=== PATIENT | female | born 1955 | race Caucasian/White ===

== ENCOUNTER 2016-04-21 07:23 | Day surgery (SDC) | payer OTHER ==
[2016-04-21] VITALS (13 sets, daily range): BP systolic 110–142; BP diastolic 51–73; PULSE 59–79; RESP 11–20; O2SAT 95–99
[~2016-04-21] VITALS: Ht 165.1 cm; Wt 93.9 kg
[~2016-04-21 07:23] MED LIST: ASCO1TAB39 PO; BUPR300T52 PO; CeFAZolin Inj 2 GM in IV Premix 1 EACH IV ONE; DICL100G26 TOPICAL; GABA-502 PO; HYDR-656 PO; HYDR25TA4 PO; IBUP200C11 PO; ROPI1TAB3 PO; TRAZ-118 PO; VITA150T PO
[2016-04-21] MEDS ORDERED: Dexamethasone 4 mg/mL Inj ONE (07:24)
[2016-04-21] MEDS ORDERED: Neostigmine 1 mg/mL 5 mL Inj ONE (07:24)
[2016-04-21] MEDS ORDERED: Rocuronium 10 mg/mL 5 mL Inj ONE (07:24)
[2016-04-21] MEDS ORDERED: Bupivacaine-MPF 0.25%/EPI 30 mL Inj ONE (07:24)
[2016-04-21] MEDS ORDERED: Propofol 10,000 mCg/mL 20 mL Inj ONE (07:24)
[2016-04-21] MEDS ORDERED: Succinylcholine Chloride 20 mg/mL 5 mL Inj ONE (07:24)
[2016-04-21] MEDS ORDERED: fentaNYL-PF 50 mCg/mL 2 mL Inj ONE (07:24)
[2016-04-21] MEDS ORDERED: Phenylephrine 10,000 mCg/mL Inj ONE (07:24)
[2016-04-21] MEDS ORDERED: Glycopyrrolate 0.2 mg/mL 5 mL Inj ONE (07:24)
[2016-04-21] MEDS ORDERED: Ondansetron 2 mg/mL 2 mL Inj ONE (07:24)
[2016-04-21] MEDS: Lactated Ringer's 1,000 ML IV SCH ×2 (07:40→09:00)
--- NOTE | 2016-04-21 08:28 | PCM.HPANE ---
Patient Data Surgeon Admitting Provider: Attending Provider:Dion Gunderson DO Primary Care Physician:Rianna Fox MD Other Provider:Luz Kirkpatrick Anesthesia Reason for Visit Right Shoulder Rotator Cuff Tear, Carpal Tunnel Ht/WT & BMI Height (Feet): 5 Height (Inches): 5.00 Weight (Kilograms): 93.9 Body Mass Index 34.00 Allergies Coded Allergies: No Known Allergies (Unverified , 04/18/16) Past Anesthesia History Anesthesia History: Denies:: Abnormal Airway, Anesthesia Reactions, Difficult Intubation, Fam Anesthesia Reaction, Fam Malignant Hypertherm, Malignant Hyperthermia Diabetes History Hx Diabetes?: No MRSA MRSA: No Medications Hypertension Medication: Yes Home Meds Incl Beta Bao: No Reported Medications Trazodone 100 Mg [id number] Mg PO BID Ref 0 04/18/16 Vitamin B Complex & Vit C No.4 (Super B Complex)150 Mg [id number] Mg PO DAILY 04/18/16 Ropinirole 1 Mg Tablet1 Mg PO BID Ref 0 04/18/16 hydrOXYzine Hcl (HydrOXYzine Hcl)25 Mg [id number] Mg PO TID PRN For Itching Ref 0 04/18/16 Hydrochlorothiazide 25 Mg [id number] Mg PO DAILY 30 Days Ref 0 04/18/16 Ascorbic Acid/Vitamin E/Biotin (Hair Skin Nails-Biotin Gummies)1 Each Tab.[email or web address] Each PO DAILY 04/18/16 Gabapentin 300 Mg [id number] Mg PO TID Ref 0 04/18/16 Diclofenac Gel 100 Gm Tube1 Applic TOPICAL QID PRN For Pain #1 TUBE 04/18/16 Bupropion ER 300 Mg Tab.[id number] Mg PO DAILY Ref 0 04/18/16 Ibuprofen (Advil)200 Mg [id number] Mg PO Q6H PRN For Pain 04/18/16 History HEENT History: Denies:: Abnormal Airway Cataracts Difficult Intubation Dysphagia Glaucoma Hearing Problem Sinus Problem TMJ Denture Type: Partial- Upper Hx of Heart Problems?: Yes Cardiovascular History: Positive for:: Hypertension Denies:: AICD Abdominal Aortic Aneurism Atrial Fibrillation Cardiac Surgery Chest Pain Edema Heart Murmur Irregular Heartbeat Pacemaker Peripheral Vascular Rheumatic Fever Hx of Respiratory Problem?: Yes Respiratory History: Positive for:: Pneumonia (2014- last occasion) Use of C-PAP Machine (prior use of, stopped on own- couldnt tolerate) Denies:: Asthma COPD Emphysema Oxygen Administration Tuberculosis Use of Inhalers / NEBS Neurological History: Denies:: Alzheimer's Disease CVA Dementia Dizziness Headaches Multiple Sclerosis Parkinson's Disease Seizures TIA Other Neurological Pertinent: restless leg syndrome Hx of GI Problems?: Yes Gastrointestinal History: Positive for:: Gall Bladder Disease (removed) Heartburn (occasional) Denies:: Cirrhosis Diverticulitis Gastroesphageal Reflux Gastrointestinal Bleeding Hepatitis Hiatal Hernia Liver Disease Rectal Bleeding Hx of Problems?: No Genitourinary History: Denies:: Kidney Stones Urinary Tract Infection Female Hx: Denies:: Currently (tubal ligation) Problems with Breasts? Skin History: Denies:: History Skin Disorders? Pressure Ulcers Hx Musculoskeletal Problems?: Yes Musculoskeletal History: Positive for:: Back Injury (related to shoulder) Musculoskeletal Trauma (right shoulder, right carpal tunnel current admission problem) Osteoarthritis Denies:: Fibromyalgia Joint Replacement Myasthenia Gravis Systemic Lupus Hx of Psycho/Social Problems?: Yes Psycho Social History: Positive for:: Hx Depression Hx Surgeries?: Yes (tubal, prior shoulder, carpal tunnel, donald) Hx Any Other Health Problems?: Yes Other History: Denies:: Cancer Thyroid Disease History Blood Transfusions: Positive for:: Accept Blood Products? Denies:: Blood Transfusions Hx Diabetes: No Hx Alcohol Use: No (stopped drinking a year ago)Hx Substance Use: NoHave You Smoked inLast 12 mo: No Stop/Bang Treated for Sleep Apnea?: No Do You Have a CPAP Machine?: No S-Snoring: Do You Snore Loudly: Yes T-Tired: feel tired, fatigued: Yes O-Obsered: Observed not breath: No P-Blood Pressure: treated: No B- Body Mass Index > 35 kg/m2: Yes A- Age over 50: Yes N- Neck Large Circumference: No G- Gender Male: No TIM Total Score: 4 TIM Risk Assessment: High Risk, =/>3 Yes Risk Assessment Category Category 1A: Patient has history of documented sleep apnea, and HAS NOT received any narcotic, sedative or anesthesia administration during this stay. Category 1B: Patient has history of documented sleep apnea, and HAS received any narcotic , sedative or anesthesia administration during this stay Category 2: Patient has SUSPECTED Obstructive Sleep Apnea, and HAS received any narcotic , sedative or anesthesia administration during this stay. Category 3: Patient has SUSPECTED Obstructive Sleep Apnea and HAS NOT received narcotic, sedative or anesthesia administration during this stay. Category 4: Outpatient in Procedural Areas with known sleep apnea or who screen positive for High Risk via the STOP/BANG questionnaire. Exam Exam Vital Signs Vital Signs Date Time Temp Pulse Resp B/P Pulse Ox O2 Delivery O2 Flow Rate FiO2 04/21/16 07:56 CPAP/BIPAP 04/21/16 07:56 35.4 59 14 110/65 98 Room Air General Appearance: Oriented X3 HEENT/AIRWAY: MP 2 Lungs: Normal Air Movement Heart: Regular Rate/Rhythm Meds/Labs/Diagnostics Admission Meds Current Medications Lactated Ringer's (Lr) 1,000 ml @ 120 mls/hr Q8H20M IV Last administered on t 07:40; Start 04/21/16 at 05:00; Stop 04/21/16 at 13:19 Plan Impression Patient chart reviewed, patient interviewed and anesthestic plan with risks, benefits, and alternatives discussed, and informed consent obtained. NPO Status: 04/20 ASA Physical Status: ASA2 Mod Systemic Disease Anesthetic Plan: GA, Regional Block Bene/Risks/Altern/Consents: Yes HP Complete Prior to Induction: Yes Benedicto Aldana MD Apr 21, 2016 08:28
[2016-04-21] MEDS ORDERED: oxyCODONE-Acetamin 5-325 mg Tablet PO PRN (09:25)
[2016-04-21] MEDS ORDERED: HYDROmorphone 1 mg/mL Inj IVPUSH PRN (10:20)
[2016-04-21] MEDS ORDERED: MetoCLOpramide 5 mg/mL 2 mL Inj IVPUSH PRN (10:20)
[2016-04-21] MEDS ORDERED: Atropine 0.4 mg/mL Inj IVPUSH PRN (10:20)
[2016-04-21] MEDS ORDERED: fentaNYL-PF 50 mCg/mL 2 mL Inj IVPUSH PRN (10:20)
[2016-04-21] MEDS ORDERED: Lactated Ringer's 1,000 ML IV SCH (10:20)
[2016-04-21] MEDS ORDERED: hydrALAZINE 20 mg/mL Inj IVPUSH PRN (10:20)
[2016-04-21] MEDS ORDERED: EPHEDrine Sulfate 50 mg/mL Inj IVPUSH PRN (10:20)
[2016-04-21] MEDS ORDERED: Ondansetron 2 mg/mL 2 mL Inj IVPUSH PRN (10:20)
[2016-04-21] MEDS ORDERED: Labetalol 5 mg/mL 4 mL Inj IV PRN (10:20)
[2016-04-21] MEDS ORDERED: Lactated Ringer's 500 ML IV PRN (10:20)
[2016-04-21] MEDS ORDERED: Phenylephrine 10,000 mCg/mL Inj IVPUSH PRN (10:20)
[2016-04-21] MEDS ORDERED: Lidocaine 1%-Epi 1:100,000 20 mL Inj INFILTRATE ONE (10:28)
--- NOTE | 2016-04-21 12:27 | PCM.ANEP1 ---
Post Anesthesia Phase 1 PACU Phase 1 Assessment Vital Signs Vital Signs Date Time Temp Pulse Resp B/P Pulse Ox O2 Delivery O2 Flow Rate FiO2 04/21/16 12:25 78 19 130/69 95 Room Air 04/21/16 12:20 73 15 131/60 97 Room Air 04/21/16 12:15 75 14 128/62 99 Simple Mask 8 04/21/16 12:12 36.0 79 20 133/51 99 Simple Mask 8 04/21/16 07:56 CPAP/BIPAP 04/21/16 07:56 35.4 59 14 110/65 98 Room Air Anesthetic Administered: GA, Regional Block Level of Alertness: Awake, talking LIN's with Equal Strength: Yes Pain: No Nausea or Vomiting: No Oxygen Delivery: Simple Mask Lungs: Normal Air Movement Jamie Vieyra MD Apr 21, 2016 12:27
--- NOTE | 2016-04-21 12:28 | PCM.ANEP2 ---
Post Anesthesia Evaluation ASA/CMS Post Anesthesia VS in Patient's Normal Range?: Yes Resp Stable; Airway Patent?: Yes CV Function & Hydration Stable: Yes Mental Status Recovered?: Yes Pain control Satisfactory?: Yes N/V Control Satisfactory?: Yes Jamie Vieyra MD Apr 21, 2016 12:28
[2016-04-21] MEDS ORDERED: HYDROmorphone 0.5 mg/0.5 mL iSecure Syringe ONE (12:43)
--- NOTE | 2016-04-21 13:03 | OP ---
[address] [address] OPERATIVE REPORT PATIENT: CYDNEY LUTHER : 1955 MR#: [id number] ADMIT: 04/21/2016 JOB ID: [id number] DATE OF SURGERY: 04/21/2016 PREOPERATIVE DIAGNOSIS(ES): 1. Right recurrent carpal tunnel syndrome. 2. Right shoulder high-grade partial thickness rotator cuff tear. 3. Right shoulder impingement syndrome. 4. Right shoulder bicipital tendinopathy. 5. Right shoulder acromioclavicular arthritis. POSTOPERATIVE DIAGNOSIS(ES): 1. Right recurrent carpal tunnel syndrome. 2. Right shoulder rotator cuff tear. 3. Right shoulder impingement syndrome. 4. Right shoulder acromioclavicular arthritis. 5. Right shoulder bicipital tendinopathy. 6. Right shoulder degenerative labrum. PROCEDURES: 1. Right open carpal tunnel release. 2. Local soft tissue rearrangement of fat from the hypothenar eminence measuring approximately 1 cm in diameter. 3. Right shoulder arthroscopy with rotator cuff repair. 4. Right shoulder arthroscopy with extensive debridement including debridement of the labrum and a biceps tenotomy. 5. Right shoulder arthroscopy with subacromial decompression and acromioplasty. 6. Right shoulder arthroscopy with distal clavicle excision. SURGEON: Dion Gunderson D.O. ASSISTANTS: Alfredo Almeida PA-C. The assistance of Alfredo Almeida PA-C was necessary for help with manipulation of the intra-articular equipment, including the camera, and for help with primary closure at the conclusion of the case. ANESTHESIA: General. BRIEF HISTORY: The patient is a pleasant 60-year-old female with a longstanding history of right shoulder pain as well as numbness and tingling to the right hand. She had a previous rotator cuff repair many years ago as well as a previous carpal tunnel release performed endoscopically just over a year prior. She started having increased right shoulder pain as well as recurrence of her paresthesias to her right hand. She failed conservative treatment. She was seen previously by Dr. Escalante and started on therapy, as well as OMT treatments at the hospital and multiple injections. An MRI did demonstrate high-grade partial thickness tear and evidence of impingement syndrome, as well as degenerative labral tearing and acromioclavicular arthritis. With failure conservative treatment, I gave the patient the option to proceed with a right shoulder arthroscopy with rotator cuff repair versus debridement, subacromial decompression, distal clavicle excision, and possible biceps tenotomy. I also discussed with her after recurrence of her carpal tunnel symptoms, and having failure to resolve those symptoms with nighttime bracing option, to proceed with a revision carpal tunnel release, this time performed open, and also with a hypothenar fat graft interposition taken from the hypothenar eminence. She understood the risks include, but are not limited to, neurovascular injury, tendon injury, infection, failure to resolve the patient's preoperative symptoms, stiffness, and persistent pain, all of which may require further intervention. The patient had all questions answered. Consent was signed and placed in the chart. PROCEDURE IN DETAIL: The patient was brought to the operative suite and placed on the operating room table. A surgical time-out was then performed. Everyone in the room was in agreement. After appropriate anesthesia was obtained, the patient was placed into the beach chair position with all prominences well padded. The right upper extremity was then prepped and draped in sterile fashion. Carpal tunnel surgery was approached first. A sterile tourniquet was applied. The right upper extremity was then exsanguinated. Tourniquet was then inflated to 250 mmHg. A 2 cm longitudinal incision was made in line with the radial aspect of the ring finger and the ulnar aspect of the palmaris longus. The incision was kept distal to the wrist crease and proximal to Gonzalez's cardinal line. Subcutaneous tissues were dissected, with bipolar electrocautery utilized to maintain hemostasis throughout the procedure. The palmar fascia was then incised in line with the skin incision, followed by exposure of the underlying transverse carpal ligament. The transverse carpal ligament was then released in its entirety to include the distal extent of the antebrachial fascia. Copious irrigation was then performed. A centimeter in diameter segment of hypothenar fat was freed up from the surrounding soft tissues and rotated and sewn into the radial flap of the released transverse carpal ligament as an interposition. This was secured with 4-0 Vicryl. A 4-0 nylon was then used to close the skin. A bulky dressing was then applied and attention was turned towards the shoulder arthroscopy. A standard posterior viewing portal was then developed in typical fashion. On gross observation there was significant hypertrophic bursa, as well as degenerative labral tearing from the 9 o'clock to the 2 o'clock position. There was also evidence of bicipital tendinopathy within the distal aspect of the tendon within the intra-articular space. The undersurface demonstrated previous sutures from a previous rotator cuff repair and a perforation of the anterior fibers of the supraspinatus. An anterior working portal was then developed in typical fashion, first utilizing a spinal needle to determine the appropriate position for the working portal. A shaver was introduced to perform extensive synovectomy as well as debridement of the labrum. The degenerative labrum was well debrided but the superior aspect was easily elevated off of the superior glenoid. With the combination of the labral tear as well as the bicipital tendinopathy, the decision was made to perform a biceps tenotomy. Biceps tenotomy was then performed utilizing arthroscopic scissors as well as a shaver to debride back the stump to a stable labrum. Attention was then turned to the subacromial space. The camera was introduced. There was significant hypertrophic bursa. A lateral working portal was then created and a shaver introduced to perform an extensive bursectomy. This allowed for visualization of the bursal surface of the rotator cuff. The very anterior fibers demonstrated some thinning, with a small area of perforation. A single 4.5 mm Arthrex corkscrew anchor was then applied just lateral to the articular surface of the humeral head and the sutures shuttled through to repair the rotator cuff in a single row fashion. Attention was then turned towards the undersurface of the acromion. Surface electrocautery was used to further delineate the undersurface of the acromion. There was a significant underhanging of the acromion including anteriorly. This was further debrided utilizing a bur. The acromioplasty was performed to provide additional space within the subacromial space. After completion of the acromioplasty, attention was turned towards the distal clavicle. Through the anterior portal the bur was utilized to perform a distal clavicle excision approximately 8-10 mm in width. The arthroscopic equipment was then removed from the joint. The portals were then closed with 5-0 nylon in a simple interrupted fashion. The patient was placed in a bulky soft dressing and into a shoulder immobilizer. ESTIMATED BLOOD LOSS: 25 mL. COMPLICATIONS: None. DISPOSITION: The patient tolerated the procedure well. Anesthesia was reversed. The patient was transferred to the PACU for recovery. POSTOPERATIVE PLAN: The patient will follow up in office in two weeks. I will have her start working on elbow, wrist, and hand range of motion at that time. She will be in the immobilizer for six weeks but will start therapy for range of motion at four weeks due to the small size of the rotator cuff tear.
== END 2016-04-21 23:59 | disposition home or self-care (01) ==
LOC: SAS 07:23
PROVIDERS: ATTEND Orthopaedic Surgery
PROC: 0RNJ4ZZ Release Right Shoulder Joint, Percutaneous Endoscopic Approach (ICD-10-PCS; 2016-04-21)
PROC: 0PB94ZZ Excision of Right Clavicle, Percutaneous Endoscopic Approach (ICD-10-PCS; 2016-04-21)
PROC: 01N50ZZ Release Median Nerve, Open Approach (ICD-10-PCS; principal; 2016-04-21 09:30)
PROC: 0LQ14ZZ Repair Right Shoulder Tendon, Percutaneous Endoscopic Approach (ICD-10-PCS; 2016-04-21 09:30)
DX: M75.111 Incomplete rotator cuff tear or rupture of right shoulder, not specified as traumatic (principal); M19.90 Unspecified osteoarthritis, unspecified site; M67.921 Unspecified disorder of synovium and tendon, right upper arm; G56.01 Carpal tunnel syndrome, right upper limb; M75.41 Impingement syndrome of right shoulder
CPT/HCPCS: 29824; 29826; 29827; 64721; C1713; J0171; J0330; J0690; J1100; J1170; J2370; J2405; J2710; J3010; J7120